=== PATIENT | male | born 1995 | race Caucasian/White ===

== ENCOUNTER 2021-02-25 20:43 | Inpatient (IN) ==
[2021-02-25] MEDS ORDERED: fentaNYL 100 MCG/2 ML VIAL IV STA (21:14)
[2021-02-25 21:46] LABS: Basophils # 0.1 10*3/uL (0.0-0.2); Basophils % 0.9 % (0.0-0.8); Eosinophils # 0.2 10*3/uL (0.0-0.87); Hematocrit 41.5 VOL% (42.0-52.0); Hemoglobin 12.5 GM/DL (14.0-18.0); Immature Granulocytes % 0.1 %; Immature Granulocytes Absolute 0.01 #; Lymphocytes % 25.8 % (21.2-54.2); Mean Corpuscular HGB Conc 30.1 GM/DL (32-36); Mean Corpuscular Volume 78.3 FL (87-102); Mean Platelet Volume 11.4 FL (9.6-12.0); Monocytes % 9.1 % (1.7-12.7); Neutrophils % 62.1 % (38.7-73.9); Platelet Count 220 T/CUMM (130-400); Red Cell Distribution Width 15.6 % (9.3-17.3); White Blood Count 7.6 T/CUMM (4-12)
[2021-02-25 22:17] LABS: Calcium 8.9 MG/DL (8.5-10.1); Osmolality,Calculated 278.5 MOS/KG (273-304); Potassium 3.8 MMOL/L (3.5-5.1)
[2021-02-25] MEDS ORDERED: LIDOCAINE 2% 5 ML VIAL ONE (22:24)
[2021-02-25] MEDS ORDERED: SUCCINYLCHOLINE 200 MG/10 ML VIAL ONE (22:24)
[2021-02-25] MEDS ORDERED: ETOMIDATE 40 MG/20 ML VIAL IV ONE (22:24)
[2021-02-25] MEDS ORDERED: ROCURONIUM 50 MG/5 ML VIAL IV ONE (22:24)
[2021-02-25] MEDS ORDERED: fentaNYL 100 MCG/2 ML VIAL ONE (22:24)
[2021-02-25] MEDS ORDERED: ZALEPLON 5 MG CAPSULE PO PRN (22:30)
[2021-02-25] MEDS ORDERED: ONDANSETRON 4 MG/2 ML VIAL IV PRN (22:30)
[2021-02-25] MEDS ORDERED: hydrALAZINE 20 MG/1 ML VIAL IV PRN (22:30)
[2021-02-25] MEDS ORDERED: GLUCAGON 1 MG VIAL IM PRN (22:30)
[2021-02-25] MEDS ORDERED: DEXTROSE 50% 25 GM/50 ML VIAL IV PRN (22:30)
[2021-02-25] MEDS ORDERED: guaiFENesin/DM ER 600-30 MG TABLET PO PRN (22:30)
[2021-02-25] MEDS ORDERED: NICOTINE 21 MG/24 HR PATCH TRANSDERM PRN (22:30)
[2021-02-25] MEDS ORDERED: LACTATED RINGERS 1,000 ML IV ONE (23:02)
[2021-02-25] MEDS ORDERED: propofoL 200 MG/20 ML VIAL IV ONE (23:02)
[2021-02-25] MEDS ORDERED: SEVOFLURANE 1 UNIT/15 MINUTE INH ONE (23:02)
[2021-02-25] MEDS ORDERED: GLYCOPYRROLATE 0.4 MG/2 ML VIAL ONE (23:10)
[2021-02-25] MEDS ORDERED: NEOSTIGMINE 10 MG/10 ML VIAL ONE (23:11)
[2021-02-25] MEDS ORDERED: KETOROLAC 30 MG/1 ML VIAL ONE (23:29)
[2021-02-26] MEDS: DEXTROSE 5% NACL 0.9% 1,000 ML IV SCH ×4 (01:19→23:54)
[2021-02-26] MEDS: FAMOTIDINE 20 MG/2 ML VIAL IV SCH ×3 (01:20→23:55)
[2021-02-26] MEDS: MORPHINE 2 MG/1 ML SYRINGE IV PRN ×4 (02:47→19:22)
[2021-02-26 04:21] LABS: Basophils % 0.3 % (0.0-0.8); Hematocrit 37.6 VOL% (42.0-52.0); Hemoglobin 11.9 GM/DL (14.0-18.0); Immature Granulocytes % 0.3 %; Immature Granulocytes Absolute 0.02 #; Lymphocytes # 0.6 10*3/uL (1.4-4.0); Lymphocytes % 10.4 % (21.2-54.2); Mean Corpuscular HGB Conc 31.6 GM/DL (32-36); Mean Corpuscular Volume 76.9 FL (87-102); Mean Platelet Volume 11.5 FL (9.6-12.0); Monocytes % 2.7 % (1.7-12.7); Neutrophils % 86.3 % (38.7-73.9); Platelet Count 187 T/CUMM (130-400); Red Blood Count 4.89 MC/CUMM (3.8-5.5); Red Cell Distribution Width 15.4 % (9.3-17.3); White Blood Count 5.9 T/CUMM (4-12)
[2021-02-26 04:39] LABS: Calcium 8.6 MG/DL (8.5-10.1); Osmolality,Calculated 282.4 MOS/KG (273-304); Potassium 4.5 MMOL/L (3.5-5.1)
[2021-02-26] MEDS: PANTOPRAZOLE 40 MG VIAL IV SCH (09:28)
[2021-02-26] MEDS: LITHIUM 300 MG PO SCH (17:12)
[2021-02-26] MEDS ORDERED: LORazepam 2 MG/1 ML VIAL IV ONE (20:22)
[2021-02-26] MEDS: KETOROLAC 15 MG/1 ML VIAL IV PRN (20:45)
[2021-02-26] MEDS ORDERED: LITHIUM 600 MG PO SCH (21:00)
[2021-02-26] MEDS ORDERED: propofoL 200 MG/20 ML VIAL IV ONE (22:31)
[2021-02-26] MEDS ORDERED: SUCCINYLCHOLINE 200 MG/10 ML VIAL ONE (22:31)
[2021-02-26] MEDS ORDERED: LIDOCAINE 2% 5 ML VIAL ONE (22:31)
[2021-02-26] MEDS ORDERED: SEVOFLURANE 1 UNIT/15 MINUTE INH ONE ×3 (22:31→23:41)
[2021-02-26] MEDS ORDERED: MIDAZOLAM 2 MG/2 ML VIAL ONE ×3 (22:42→23:14)
[2021-02-26] MEDS ORDERED: fentaNYL 100 MCG/2 ML VIAL ONE (22:42)
[2021-02-26] MEDS ORDERED: ROCURONIUM 50 MG/5 ML VIAL IV ONE (23:41)
[2021-02-26] MEDS ORDERED: LACTATED RINGERS 1,000 ML IV ONE (23:41)
[2021-02-26] MEDS: GABAPENTIN 600 MG TABLET PO SCH (23:54)
[2021-02-26] MEDS: traZODone 50 MG TABLET PO SCH (23:54)
[2021-02-26] MEDS: FLUoxetine 10 MG CAPSULE PO SCH (23:56)
[2021-02-26] MEDS: OLANZapine 5 MG TABLET PO SCH (23:56)
[2021-02-27 00:40] LABS: ABG Base Excess 1.1 MMOL/L (-2.5-2.5); ABG HCO3 25.4 MMOL/L (20-26); ABG PCO2 32.8 MM HG (35-48); ABG PH 7.476 (7.35-7.45); ABG TCO2 21.8 MMOL/L (23-27)
[2021-02-27] MEDS: LACTATED RINGERS 1,000 ML IV SCH ×2 (01:04→14:00)
[2021-02-27 01:14] LABS: Barbiturates Screen,Urine Negative (Negative); Benzodiazepines Screen,Urine Positive (Negative); Cannabinoid Screen,Urine Negative (Negative); Opiate Screen,Urine Positive (Negative); Phencyclidine Screen,Urine Negative (Negative)
[2021-02-27 06:40] LABS: Basophils % 0.8 % (0.0-0.8); Eosinophils # 0.1 10*3/uL (0.0-0.87); Eosinophils % 1.9 % (0.00-10.9); Hematocrit 33.7 VOL% (42.0-52.0); Hemoglobin 10.6 GM/DL (14.0-18.0); Immature Granulocytes % 0.6 %; Immature Granulocytes Absolute 0.03 #; Lymphocytes % 41.5 % (21.2-54.2); Mean Corpuscular HGB Conc 31.5 GM/DL (32-36); Mean Corpuscular Volume 76.2 FL (87-102); Mean Platelet Volume 12.7 FL (9.6-12.0); Monocytes % 12.6 % (1.7-12.7); Neutrophils % 42.6 % (38.7-73.9); Platelet Count 159 T/CUMM (130-400); Red Blood Count 4.42 MC/CUMM (3.8-5.5); Red Cell Distribution Width 15.5 % (9.3-17.3); White Blood Count 4.8 T/CUMM (4-12)
[2021-02-27 07:09] LABS: Alanine Aminotransferase 32 U/L (16-61); Albumin 3.2 G/DL (3.4-5.0); Alkaline Phosphatase 54 U/L (45-117); Aspartate Amino Transferase 14 U/L (0-37); Bilirubin,Total < 0.39 MG/DL (0.20-1.00); Blood Urea Nitrogen 13 MG/DL (7-18); Calcium 8.2 MG/DL (8.5-10.1); Carbon Dioxide 24 MMOL/L (21-32); Estimated Glom Filtration Rate 151 ML/MIN; Glucose 75 MG/DL (74-106); Osmolality,Calculated 281.1 MOS/KG (273-304); Potassium 3.3 MMOL/L (3.5-5.1); Sodium 142 MMOL/L (136-145); Total Protein 5.9 G/DL (6.4-8.2)
[2021-02-27 07:11] LABS: Vitamin B12 248 PG/ML (211-911)
[2021-02-27 07:19] LABS: Acanthocytes Few; Eosinophils 1 % (0-10); Hypochromasia Slight; Lymphocytes 40 % (20-55); Microcytosis Slight; Platelet Estimate Normal; Segmented Neutrophils 48 % (50-85); Total Cells Counted 100
[2021-02-27 07:23] LABS: % Iron Saturation 4.8 % (18-50); Ferritin 5.8 ng/ml (26-388)
[2021-02-27 08:23] LABS: Sedimentation Rate-Westergren 9 MM/HR (0-15)
[2021-02-27] MEDS ORDERED: HALOPERIDOL 5 MG/ML AMP IM PRN (09:49)
[2021-02-27] MEDS ORDERED: BENZOCAINE/MENTHOL LOZENGE 18/BOX PO PRN (09:50)
[2021-02-27] MEDS: FLUoxetine 10 MG CAPSULE PO SCH ×3 (10:09→21:26)
[2021-02-27] MEDS: GABAPENTIN 600 MG TABLET PO SCH ×3 (10:09→21:26)
[2021-02-27] MEDS: PANTOPRAZOLE 40 MG VIAL IV SCH (10:09)
[2021-02-27] MEDS: LITHIUM 300 MG PO SCH ×3 (10:09→16:55)
[2021-02-27] MEDS: FAMOTIDINE 20 MG/2 ML VIAL IV SCH ×2 (10:09→21:28)
[2021-02-27] MEDS: OLANZapine 5 MG TABLET PO SCH (21:26)
[2021-02-27] MEDS: traZODone 50 MG TABLET PO SCH (21:26)
[2021-02-27] MEDS: LITHIUM ER 300 MG TABLET PO SCH (21:27)
[2021-02-27] MEDS: KETOROLAC 15 MG/1 ML VIAL IV PRN (21:35)
[2021-02-27] MEDS: LORazepam 2 MG/1 ML VIAL IV PRN (23:25)
[2021-02-28] MEDS: LACTATED RINGERS 1,000 ML IV SCH ×2 (01:48→03:40)
[2021-02-28 05:23] LABS: Basophils # 0.1 10*3/uL (0.0-0.2); Basophils % 1.1 % (0.0-0.8); Eosinophils # 0.2 10*3/uL (0.0-0.87); Eosinophils % 4.6 % (0.00-10.9); Hemoglobin 11.3 GM/DL (14.0-18.0); Immature Granulocytes % 0.2 %; Immature Granulocytes Absolute 0.01 #; Lymphocytes # 1.7 10*3/uL (1.4-4.0); Lymphocytes % 37.8 % (21.2-54.2); Mean Corpuscular HGB Conc 30.5 GM/DL (32-36); Mean Corpuscular Volume 78.9 FL (87-102); Neutrophils % 44.3 % (38.7-73.9); Platelet Count 172 T/CUMM (130-400); Red Blood Count 4.69 MC/CUMM (3.8-5.5); Red Cell Distribution Width 15.8 % (9.3-17.3); White Blood Count 4.6 T/CUMM (4-12)
[2021-02-28 05:41] LABS: Osmolality,Calculated 285.7 MOS/KG (273-304); Potassium 3.8 MMOL/L (3.5-5.1)
[2021-02-28 05:44] LABS: Hypochromasia Slight; Microcytosis Slight; Platelet Estimate Adequate
[2021-02-28] MEDS: GABAPENTIN 600 MG TABLET PO SCH ×3 (08:01→21:11)
[2021-02-28] MEDS: LITHIUM ER 300 MG TABLET PO SCH ×4 (08:01→21:11)
[2021-02-28] MEDS: FLUoxetine 10 MG CAPSULE PO SCH ×3 (08:01→21:10)
[2021-02-28] MEDS: PANTOPRAZOLE 40 MG VIAL IV SCH (08:02)
[2021-02-28] MEDS: FAMOTIDINE 20 MG/2 ML VIAL IV SCH (08:02)
[2021-02-28] MEDS: FAMOTIDINE 20 MG TABLET PO SCH ×2 (08:21→21:11)
[2021-02-28 12:18] LABS: Hemoglobin A1 (Alkaline) 97.5 % (96.5-98.5); Hemoglobin A2 (Alkaline) 2.5 % (1.5-3.5)
[2021-02-28] MEDS: LORazepam 2 MG/1 ML VIAL IV PRN ×2 (17:26→21:55)
[2021-02-28] MEDS ORDERED: HYDROmorphone 2 MG/1 ML VIAL IV ONE (17:35)
[2021-02-28] MEDS: traZODone 50 MG TABLET PO SCH (21:10)
[2021-02-28] MEDS: OLANZapine 5 MG TABLET PO SCH (21:11)
[2021-02-28] MEDS: diphenhydrAMINE CAP 25 MG CAPSULE PO PRN (21:57)
[2021-03-01] MEDS: LORazepam 2 MG/1 ML VIAL IV PRN ×4 (04:53→21:45)
[2021-03-01] MEDS: FLUoxetine 10 MG CAPSULE PO SCH ×3 (08:14→20:52)
[2021-03-01] MEDS: GABAPENTIN 600 MG TABLET PO SCH ×3 (08:14→20:52)
[2021-03-01] MEDS: LITHIUM ER 300 MG TABLET PO SCH ×4 (08:14→20:51)
[2021-03-01] MEDS: FAMOTIDINE 20 MG TABLET PO SCH ×2 (08:14→20:52)
[2021-03-01] MEDS: MORPHINE 2 MG/1 ML SYRINGE IV PRN ×2 (17:15→22:25)
[2021-03-01] MEDS: diphenhydrAMINE CAP 25 MG CAPSULE PO PRN (20:51)
[2021-03-01] MEDS: traZODone 50 MG TABLET PO SCH (20:51)
[2021-03-01] MEDS: OLANZapine 5 MG TABLET PO SCH (20:52)
[2021-03-02] MEDS: KETOROLAC 15 MG/1 ML VIAL IV PRN (01:40)
[2021-03-02] MEDS: LITHIUM ER 300 MG TABLET PO SCH ×4 (08:08→22:20)
[2021-03-02] MEDS: FLUoxetine 10 MG CAPSULE PO SCH ×3 (08:09→22:21)
[2021-03-02] MEDS: FAMOTIDINE 20 MG TABLET PO SCH ×2 (08:09→22:20)
[2021-03-02] MEDS: GABAPENTIN 600 MG TABLET PO SCH ×3 (08:10→22:20)
[2021-03-02] MEDS: LORazepam 2 MG/1 ML VIAL IV PRN ×3 (09:01→22:21)
[2021-03-02] MEDS ORDERED: LIDOCAINE 2% 5 ML VIAL ONE (19:17)
[2021-03-02] MEDS ORDERED: propofoL 200 MG/20 ML VIAL IV ONE (19:17)
[2021-03-02] MEDS ORDERED: SUCCINYLCHOLINE 200 MG/10 ML VIAL ONE (19:17)
[2021-03-02] MEDS ORDERED: DEXAMETHASONE 4 MG/1 ML VIAL ONE (19:17)
[2021-03-02] MEDS ORDERED: ONDANSETRON 4 MG/2 ML VIAL ONE (19:17)
[2021-03-02] MEDS ORDERED: fentaNYL 100 MCG/2 ML VIAL ONE (19:18)
[2021-03-02] MEDS ORDERED: MIDAZOLAM 2 MG/2 ML VIAL ONE (19:18)
[2021-03-02] MEDS ORDERED: SEVOFLURANE 1 UNIT/15 MINUTE INH ONE ×3 (19:19→20:41)
[2021-03-02 21:15] VITALS: BP 131/078
[2021-03-02] MEDS: traZODone 50 MG TABLET PO SCH (22:20)
[2021-03-02] MEDS: OLANZapine 5 MG TABLET PO SCH (22:21)
[2021-03-02] MEDS: HALOPERIDOL 5 MG/ML AMP IV PRN (22:24)
[2021-03-03] MEDS: LORazepam 2 MG/1 ML VIAL IV PRN ×3 (02:10→22:30)
[2021-03-03] MEDS: FAMOTIDINE 20 MG TABLET PO SCH ×2 (08:12→20:40)
[2021-03-03] MEDS: LITHIUM ER 300 MG TABLET PO SCH ×4 (08:12→20:43)
[2021-03-03] MEDS: FLUoxetine 10 MG CAPSULE PO SCH ×3 (08:12→20:43)
[2021-03-03] MEDS: GABAPENTIN 600 MG TABLET PO SCH ×3 (08:12→20:43)
[2021-03-03 08:50] LABS: Basophils % 0.1 % (0.0-0.8); Hematocrit 40.9 VOL% (42.0-52.0); Hemoglobin 12.9 GM/DL (14.0-18.0); Immature Granulocytes % 0.5 %; Immature Granulocytes Absolute 0.05 #; Lymphocytes # 0.5 10*3/uL (1.4-4.0); Mean Corpuscular HGB Conc 31.5 GM/DL (32-36); Mean Corpuscular Volume 77.3 FL (87-102); Mean Platelet Volume 11.6 FL (9.6-12.0); Monocytes % 4.2 % (1.7-12.7); Neutrophils % 90.2 % (38.7-73.9); Platelet Count 208 T/CUMM (130-400); Red Blood Count 5.29 MC/CUMM (3.8-5.5); Red Cell Distribution Width 15.8 % (9.3-17.3); White Blood Count 9.9 T/CUMM (4-12)
[2021-03-03 09:09] LABS: Calcium 9.1 MG/DL (8.5-10.1); Osmolality,Calculated 275.8 MOS/KG (273-304); Potassium 4.2 MMOL/L (3.5-5.1)
[2021-03-03] MEDS: HALOPERIDOL 5 MG/ML AMP IV PRN ×2 (12:28→22:32)
[2021-03-03] MEDS: OLANZapine 5 MG TABLET PO SCH (20:42)
[2021-03-03] MEDS: traZODone 50 MG TABLET PO SCH (20:43)
[2021-03-04] MEDS: LORazepam 2 MG/1 ML VIAL IV PRN ×2 (02:04→07:36)
[2021-03-04] MEDS: diphenhydrAMINE CAP 25 MG CAPSULE PO PRN (02:06)
[2021-03-04] MEDS: LITHIUM ER 300 MG TABLET PO SCH (07:52)
== END 2021-03-04 07:51 | DRG 394 ==
LOC: N.EDINP 20:43 → N.ED 20:43 → SUATTDRO 22:30 → N.EDINP 22:41 → N.4E 02-26 00:12 → N.ICU 02-26 23:33 → SUATTDRO 02-27 08:05
PROVIDERS: ADMIT Internal Medicine; ATTEND Internal Medicine